=== PATIENT | male | born 1945 | race Caucasian/White ===

== ENCOUNTER 2018-01-14 08:15 | Inpatient (IN) | payer OTHER ==
[~2018-01-14] VITALS: Ht 170.2 cm; Wt 85.3 kg
[2018-01-14] MEDS ORDERED: COZAAR100 MG PO (09:38)
[2018-01-14] MEDS ORDERED: JANUVIA50 MG PO (09:38)
[2018-01-14] MEDS ORDERED: HYDROCHLOROTH12.5 MG PO (09:39)
[2018-01-14] MEDS ORDERED: GLIMEPIRIDE4 MG PO (09:39)
[2018-01-14] MEDS ORDERED: AMLODIPINE BESYL5 MG PO (09:39)
[2018-01-14] MEDS ORDERED: DOXAZOSIN MESYLA4 MG PO (09:39)
[2018-01-21] MEDS ORDERED: ELIQUIS2.5 MG PO (06:41)
[2018-01-21] MEDS ORDERED: DUI500 PO (06:41)
[2018-01-21] MEDS ORDERED: PERCOCET 5-3251 EACH PO (06:41)
== END 2018-01-21 14:15 | DRG 470 ==
LOC: O/R 01-19 06:00 → SURH 01-19 06:00
PROVIDERS: Orthopaedic Surgery
PROC: 0MNN0ZZ Release Right Knee Bursa and Ligament, Open Approach (ICD-10-PCS; 2018-01-19)
PROC: 0SRC0J9 Replacement of Right Knee Joint with Synthetic Substitute, Cemented, Open Approach (ICD-10-PCS; principal; 2018-01-19 09:30)
DX: M17.11 Unilateral primary osteoarthritis, right knee (principal); D62 Acute posthemorrhagic anemia; I10 Essential (primary) hypertension; E11.9 Type 2 diabetes mellitus without complications; M81.0 Age-related osteoporosis without current pathological fracture